=== PATIENT | female | born 1965 | race Two or more races ===

== ENCOUNTER 2018-08-20 12:46 | Emergency (ER) | payer MEDICAID ==
[~2018-08-20] VITALS: Ht 152.4 cm; Wt 82.1 kg
[2018-08-20] MEDS ORDERED: ASPIRIN 81 MG TABLET CHEW PO ONE (13:00)
--- NOTE | 2018-08-20 13:20 | NUR ---
PT NOT IN ROOM AT THIS TIME.
[2018-08-20 13:22] LABS: BASOPHILS % (AUTO) 1 % (0-1); EOSINOPHILS # (AUTO) 0.25 x10^3/uL (0-0.4); EOSINOPHILS % (AUTO) 3 % (1-7); LYMPHOCYTES # (AUTO) 1.96 x10^3/uL (1-3.4); LYMPHOCYTES % (AUTO) 22 % (22-44); MD NO; MEAN CORPUSCULAR HEMOGLOBIN 29.9 pg (27.0-34.8); MEAN CORPUSCULAR HGB CONC 32.7 g/dL (32.4-35.8); MEAN CORPUSCULAR VOLUME 91.4 fL (80-100); MEAN PLATELET VOLUME 9.1 fL (7.4-10.4); MONOCYTES % (AUTO) 7 % (2-9); NEUTROPHILS % (AUTO) 67 % (42-75); PLATELET COUNT 265 x10^3/uL (130-400); RED BLOOD COUNT 4.81 x10^6/uL (3.82-5.3); RED CELL DISTRIBUTION WIDTH 13.2 % (9.6-15.2)
--- NOTE | 2018-08-20 13:29 | NUR ---
ASSUMED CARE OF PT. PT PRESENTS TO ED WITH C/O LEFT SIDED SHARP 3/10 CHEST PAIN STARTING YESTERDAY. STATES CONSISTENT. WORSE WITH EXCERTION. DENIES CARDIAC ISSUES. MILD AMOUNT OF DISTRESS NOTED. BREATHING REGULAR AND UNLABORED. POC DISCUSSED. WILL CONTINUE TO MONITOR.
[2018-08-20] MEDS ORDERED: ASPIRIN 81 MG TABLET CHEW ONE (13:33)
[2018-08-20 13:34] LABS: ALBUMIN 3.6 g/dL (3.4-5.0); ANION GAP 7 mmol/L (5-15); CALCIUM 8.5 mg/dL (8.5-10.1); CHLORIDE 111 mmol/L (98-107); CREATININE 0.71 mg/dL (0.55-1.02)
[2018-08-20 13:38] LABS: TROPONIN I < 0.015 ng/mL (0.000-0.045)
[2018-08-20] MEDS ORDERED: IBUPROFEN 200 MG TABLET PO ONE (14:00)
[2018-08-20] MEDS ORDERED: IBUPROFEN 800 MG TABLET ONE (14:04)
[2018-08-20 14:30] VITALS: BP 124/71
== END 2018-08-20 15:14 | disposition home or self-care (01) ==
LOC: ED 15:08
DX: R07.2 Precordial pain (principal)
CPT/HCPCS: 36415; 71046; 80048; 82040; 83880; 84484; 85025; 93005; 99284